=== PATIENT | female | born 1975 | race Two or more races ===

== ENCOUNTER 2022-11-01 11:22 | Emergency (ER) | payer OTHER ==
[~2022-11-01] VITALS: Ht 172.7 cm; Wt 95.7 kg
[2022-11-01] MEDS ORDERED: CRESTOR5 MG PO (11:34)
== END 2022-11-01 16:59 | disposition home or self-care (01) ==
LOC: ER 11:22
DX: M54.9 Dorsalgia, unspecified (principal)

== ENCOUNTER 2023-06-26 05:40 | Day surgery (SDC) | payer OTHER ==
[~2023-06-26 05:40] MED LIST: CRESTOR5 MG PO
[2023-06-26] MEDS ORDERED: PERCOCET 5-3251 EACH PO (11:33)
[2023-06-26] MEDS ORDERED: NEURONTIN300 MG PO (11:33)
[2023-06-26] MEDS ORDERED: KETO10TA2 PO (11:33)
== END 2023-06-26 15:40 | disposition home or self-care (01) ==
LOC: CIR.AMB 05:40
PROVIDERS: ATTEND Surgery
DX: K62.0 Anal polyp (principal); K64.8 Other hemorrhoids; E78.5 Hyperlipidemia, unspecified; Z20.822 Contact with and (suspected) exposure to COVID-19

== ENCOUNTER 2024-09-06 19:20 | Emergency (ER) | payer OTHER ==
[~2024-09-06] VITALS: Ht 165.1 cm; Wt 81.6 kg
[~2024-09-06 19:20] MED LIST changes: +KETO10TA2 PO; +NEURONTIN300 MG PO; +PERCOCET 5-3251 EACH PO
[2024-09-06] MEDS ORDERED: FAMOtidine 10 MG/ML (4ML VIAL) IV ONE (20:15)
[2024-09-06] MEDS ORDERED: KETOROLAC TROMETHAMINE 30 MG VIAL IV ONE (20:15)
[2024-09-06] MEDS ORDERED: ONDANSETRON HCL 2 MG/ML VIAL IV ONE (20:15)
[2024-09-06] MEDS ORDERED: 0.9 % SODIUM CHLORIDE 1,000 ML IV ONE (20:15)
[2024-09-06 21:10] LABS: HEMATOCRIT 36.9 % (36.0-45.00); HEMOGLOBIN 12.3 g/dL (12.0-15.00); MEAN CELL VOLUME 80.4 fL (80.00-100.00); MEAN CORPUSCULAR HEMOGLOBIN 26.8 pg (27.00-32.0); MEAN CORPUSCULAR HGB CONC 33.4 g/dl (32.0-36.0); PLATELET COUNT 317 K/uL (150-450); RED BLOOD COUNT 4.59 M/uL (4.00-6.00); RED CELL DISTRIBUTION WIDTH 13.7 % (11.5-14.5)
[2024-09-06] MEDS ORDERED: KETOROLAC TROMETHAMINE 30 MG VIAL ONE (21:21)
[2024-09-06] MEDS ORDERED: FAMOTIDINE/PF 20 MG/2 ML VIAL ONE (21:21)
[2024-09-06] MEDS ORDERED: ONDANSETRON HCL 2 MG/ML VIAL ONE (21:21)
[2024-09-06] MEDS ORDERED: DIATRIZOATE MEGLUMINE, SODIUM 30 ML BOTTLE ONE (21:26)
[2024-09-06 21:32] LABS: INR 0.99; PROTHROMBIN TIME 10.8 SECONDS (9.0-11.5)
[2024-09-06 21:49] LABS: ALBUMIN 3.2 gm/dL (3.4-5.0); ALKALINE PHOSPHATASE 93 U/L (50-136); ALT/SGPT 21 U/L (12-78); ANION GAP 11 (10.0-20.0); AST/SGOT 16 U/L (15-37); BILIRUBIN TOTAL 0.28 mg/dL (0.3-1.2); BLOOD UREA NITROGEN 15 mg/dL (7-18); BUN CREA RATIO 18 (7.0-25.0); CALCIUM 9.2 mg/dL (8.5-10.1); CARBON DIOXIDE 25 mEq/L (21-32); CHLORIDE 107 mmol/L (98-107); CREATININE SERUM 0.84 mg/dL (0.55-1.02); GFR 71.48; GLOBULINA 4.8 G/DL (2.4-3.5); GLUCOSE FASTING 129 mg/dL (65-100); OSMOLALITY SERUM 280 MOSM/KG (275-295); POTASSIUM 3.85 mEq/L (3.5-5.1); SODIUM 139 mmol/L (136-145)
[2024-09-06 21:53] LABS: HCG QUANTITATIVE < 1 mUI/mL (1-3)
[2024-09-06] MEDS ORDERED: PIPERACILLIN/TAZOBACTAM SODIUM 3.375 GM VIAL IV ONE ×2 (22:30→23:02)
[2024-09-07 02:35] LABS: URINE APPEARANCE Clear; URINE BILIRRUBIN Negative (NEGATIVE); URINE BLOOD Small; URINE COLOR Yellow; URINE GLUCOSE Negative (NEGATIVE); URINE KETONE Negative (NEGATIVE); URINE LEUKOCYTE Trace; URINE NITRATE Negative; URINE PROTEIN Trace (NEGATIVE); URINE UROBILINOGEN 0.2 E.U./dl
[2024-09-07 02:38] LABS: URINE BACTERIA 449.1 uL (0.0-1933); URINE EPITHELIAL CELLS 13.7 uL (0.0-38.8); URINE RBC 10.3 uL (0.0-20.8); URINE WBC 27.6 uL (0.0-23.2)
[2024-09-07 02:43] LABS: URINE CAST 0.14 uL (0.0-1.40)
[2024-09-07] MEDS ORDERED: PIPERACILLIN/TAZOBACTAM SODIUM 3.375 GM VIAL IV ONE (06:04)
[2024-09-07] MEDS ORDERED: MORPHINE SULFATE 4 MG/ML VIAL IV STA (06:05)
[2024-09-07] MEDS ORDERED: PIPERACILLIN/TAZOBACTAM SODIUM 3.375 GM VIAL IV STA (06:05)
[2024-09-07] MEDS ORDERED: MORPHINE SULFATE 4 MG/ML VIAL IV ONE (12:45)
[2024-09-07] MEDS ORDERED: KETOROLAC TROMETHAMINE 15 MG VIAL IV ONE (12:45)
[2024-09-07] MEDS ORDERED: KETOROLAC TROMETHAMINE 30 MG VIAL ONE ×2 (14:30→22:02)
[2024-09-07] MEDS ORDERED: METRONIDAZOLE/SODIUM CHLORIDE 500 MG/100 ML PIGGYBACK IV ONE ×2 (16:29→16:30)
[2024-09-07] MEDS ORDERED: CEFTRIAXONE SODIUM 1,000 MG VIAL ONE (16:30)
[2024-09-07] MEDS ORDERED: CEFTRIAXONE SODIUM 1,000 MG VIAL IV ONE (16:30)
[2024-09-07] MEDS ORDERED: PANTOPRAZOLE SODIUM 40 MG/VIAL VIAL IV PUSH ONE (16:30)
[2024-09-07] MEDS ORDERED: DOXYCYCLINE HYCLATE 100MG IV ONE (16:30)
[2024-09-07] MEDS ORDERED: ONDANSETRON HCL 2 MG/ML VIAL ONE (16:39)
[2024-09-07] MEDS ORDERED: KETOROLAC TROMETHAMINE 30 MG VIAL IV ONE (22:00)
== END 2024-09-07 21:39 | disposition home or self-care (01) ==
LOC: ER 19:20
PROVIDERS: General Practice
DX: N73.9 Female pelvic inflammatory disease, unspecified (principal); R16.0 Hepatomegaly, not elsewhere classified

== ENCOUNTER 2024-09-12 17:49 | Inpatient (IN) | payer OTHER ==
[~2024-09-12] VITALS: Ht 172.7 cm; Wt 97.5 kg
[2024-09-12] MEDS ORDERED: 0.9 % SODIUM CHLORIDE 1,000 ML IV SCH ×2 (19:45→22:30)
[2024-09-12 20:01] LABS: HEMATOCRIT 35.2 % (36.0-45.00); HEMOGLOBIN 11.8 g/dL (12.0-15.00); MEAN CELL VOLUME 78.7 fL (80.00-100.00); MEAN CORPUSCULAR HEMOGLOBIN 26.4 pg (27.00-32.0); MEAN CORPUSCULAR HGB CONC 33.6 g/dl (32.0-36.0); PLATELET COUNT 478 K/uL (150-450); RED BLOOD COUNT 4.47 M/uL (4.00-6.00); RED CELL DISTRIBUTION WIDTH 14.3 % (11.5-14.5)
[2024-09-12 20:15] LABS: INR 1.05; PARTIAL THROMBOPLASTIN TIME 25.3 SECONDS (22.0-34.0); PROTHROMBIN TIME 11.4 SECONDS (9.0-11.5)
[2024-09-12 20:19] LABS: ALBUMIN 2.9 gm/dL (3.4-5.0); BILIRUBIN TOTAL 0.22 mg/dL (0.3-1.2); CALCIUM 9.4 mg/dL (8.5-10.1); CREATININE SERUM 0.76 mg/dL (0.55-1.02); GFR 80.23; GLOBULINA 5.5 G/DL (2.4-3.5); POTASSIUM 3.96 mEq/L (3.5-5.1); TOTAL PROTEIN 8.4 gm/dL (6.4-8.2)
[2024-09-12] MEDS ORDERED: METRONIDAZOLE/SODIUM CHLORIDE 100 ML IV SCH (22:04)
[2024-09-12] MEDS ORDERED: FAMOTIDINE/PF 20 MG in 0.9 % SODIUM CHLORIDE 8 ML IV PUSH STA (22:05)
[2024-09-12] MEDS ORDERED: DOXYCYCLINE HYCLATE 100MG IV SCH (22:05)
[2024-09-12] MEDS ORDERED: CEFTRIAXONE SODIUM 1,000 MG in 0.9 % SODIUM CHLORIDE 100 ML IV SCH (22:05)
[2024-09-12] MEDS ORDERED: CEFTRIAXONE SODIUM 1,000 MG VIAL ONE (22:11)
[2024-09-12] MEDS ORDERED: FAMOTIDINE/PF 20 MG/2 ML VIAL ONE (22:11)
[2024-09-12] MEDS ORDERED: CEFTRIAXONE SODIUM 2,000 MG in 0.9 % SODIUM CHLORIDE 100 ML IV SCH (22:24)
[2024-09-12] MEDS ORDERED: ACETAMINOPHEN 500 MG GEL..CAP PO PRN (22:30)
[2024-09-12] MEDS ORDERED: MORPHINE SULFATE 4 MG/ML CARTRIDGE IV PRN (22:30)
[2024-09-12] MEDS ORDERED: ONDANSETRON HCL 4 MG in 0.9 % SODIUM CHLORIDE 50 ML IV PRN (22:30)
[2024-09-13 01:00] VITALS: BP 150/89; O2SAT 96
[2024-09-13 06:20] VITALS: BP 135/81
[2024-09-13 06:30] VITALS: BP 135/81
[2024-09-13 07:05] LABS: COVID-19 AG NEGATIVE (NEGATIVE)
[2024-09-13] MEDS ORDERED: FAMOTIDINE/PF 20 MG in 0.9 % SODIUM CHLORIDE 8 ML IV PUSH SCH (09:00)
[2024-09-13 09:06] VITALS: BP 114/88
[2024-09-13 10:51] LABS: URINE APPEARANCE Clear; URINE BILIRRUBIN Negative (NEGATIVE); URINE BLOOD Negative; URINE COLOR Yellow; URINE GLUCOSE Negative (NEGATIVE); URINE KETONE Negative (NEGATIVE); URINE LEUKOCYTE Negative; URINE NITRATE Negative; URINE PROTEIN Negative (NEGATIVE); URINE UROBILINOGEN 0.2 E.U./dl
[2024-09-13 10:55] LABS: URINE BACTERIA 100.3 uL (0.0-1933); URINE EPITHELIAL CELLS 4.1 uL (0.0-38.8); URINE WBC 4.2 uL (0.0-23.2)
[2024-09-13 11:09] LABS: URINE CAST 0.14 uL (0.0-1.40)
[2024-09-13] MEDS ORDERED: MIDAZOLAM HCL 2 MG/2 ML VIAL IV PUSH ONE (16:15)
[2024-09-13] MEDS ORDERED: fentaNYL CITRATE 50 MCG/ML AMPUL IV PUSH ONE (16:15)
[2024-09-13] MEDS ORDERED: DOXYCYCLINE HYCLATE 100MG IV SCH (17:00)
[2024-09-13 18:30] VITALS: BP 143/83
[2024-09-14] VITALS: BP 123/73
[2024-09-14 08:05] LABS: HEMATOCRIT 32.3 % (36.0-45.00); HEMOGLOBIN 11.1 g/dL (12.0-15.00); MEAN CELL VOLUME 79.4 fL (80.00-100.00); MEAN CORPUSCULAR HEMOGLOBIN 27.2 pg (27.00-32.0); MEAN CORPUSCULAR HGB CONC 34.3 g/dl (32.0-36.0); PLATELET COUNT 442 K/uL (150-450); RED BLOOD COUNT 4.06 M/uL (4.00-6.00); RED CELL DISTRIBUTION WIDTH 14.1 % (11.5-14.5)
[2024-09-14 08:08] VITALS: BP 133/80
[2024-09-14 08:26] LABS: ALBUMIN 2.6 gm/dL (3.4-5.0); BILIRUBIN TOTAL 0.28 mg/dL (0.3-1.2); CALCIUM 8.8 mg/dL (8.5-10.1); CREATININE SERUM 0.68 mg/dL (0.55-1.02); GFR 91.22; GLOBULINA 4.1 G/DL (2.4-3.5); PHOSPHOROUS 3.4 mg/dL (2.5-4.9); POTASSIUM 4.15 mEq/L (3.5-5.1); TOTAL PROTEIN 6.7 gm/dL (6.4-8.2)
[2024-09-14 08:28] LABS: C-REACTIVE PROTEIN 3.11 MG/DL (0.00-0.29)
[2024-09-14 16:00] VITALS: BP 131/79
[2024-09-14] MEDS ORDERED: LACTOBACILLUS ACIDOPHILUS 1 CAP CAP PO SCH (17:00)
[2024-09-14 21:05] LABS: chla t Negative (Negative); neiss Negative (Negative)
[2024-09-14 23:53] VITALS: BP 124/78
[2024-09-15 08:00] VITALS: BP 132/81
[2024-09-15 16:18] VITALS: BP 126/83
[2024-09-16 00:09] VITALS: BP 123/77
[2024-09-16 06:34] LABS: HEMATOCRIT 31.8 % (36.0-45.00); HEMOGLOBIN 10.8 g/dL (12.0-15.00); MEAN CELL VOLUME 79.2 fL (80.00-100.00); MEAN CORPUSCULAR HEMOGLOBIN 26.8 pg (27.00-32.0); MEAN CORPUSCULAR HGB CONC 33.9 g/dl (32.0-36.0); PLATELET COUNT 402 K/uL (150-450); RED BLOOD COUNT 4.01 M/uL (4.00-6.00); RED CELL DISTRIBUTION WIDTH 13.9 % (11.5-14.5)
[2024-09-16 08:00] VITALS: BP 119/77
[2024-09-16 16:00] VITALS: BP 126/82
[2024-09-16] MEDS ORDERED: DOXYCYCLINE HYCLATE 100 MG CAPSULE PO SCH (21:00)
[2024-09-17 01:00] VITALS: BP 115/72
[2024-09-17] MEDS ORDERED: METROnidazole 500 MG TABLET PO SCH (01:00)
[2024-09-17 08:50] VITALS: BP 116/65
[2024-09-17 16:00] VITALS: BP 115/77
[2024-09-17] MEDS ORDERED: CEFTRIAXONE SODIUM 2,000 MG VIAL IM STA (21:50)
[2024-09-18] MEDS ORDERED: CEFTRIAXONE SODIUM 2,000 MG VIAL IM ONE (00:30)
[2024-09-18 00:37] VITALS: BP 120/79
[2024-09-18 08:35] VITALS: BP 114/70; O2SAT 100
[2024-09-18 13:20] VITALS: BP 120/82; O2SAT 98
[2024-09-18 16:00] VITALS: BP 126/80
[2024-09-18] MEDS ORDERED: CEFTRIAXONE2 GM IM (18:28)
[2024-09-18] MEDS ORDERED: Vibramycin PO (18:28)
[2024-09-18] MEDS ORDERED: METRONIDAZOLE500 MG PO (18:29)
[2024-09-18] MEDS ORDERED: LIDOCAINE HCL 1% 10ML VIAL IJ NR (18:30)
[2024-09-18] MEDS ORDERED: CEFTRIAXONE SODIUM 2,000 MG VIAL IM NR (18:30)
[2024-09-18] MEDS ORDERED: CEFTRIAXONE SODIUM 2,000 MG VIAL IM SCH (21:00)
== END 2024-09-18 19:14 | disposition home or self-care (01) | DRG 759 ==
LOC: ER 17:50 → OB/GYN 22:52
PROVIDERS: General Practice; Internal Medicine Infectious Disease; ADMIT Obstetrics & Gynecology; ATTEND Obstetrics & Gynecology
PROC: BW21YZZ Computerized Tomography (CT Scan) of Abdomen and Pelvis using Other Contrast (ICD-10-PCS; principal; 2024-09-12)
PROC: BW21ZZZ Computerized Tomography (CT Scan) of Abdomen and Pelvis (ICD-10-PCS; 2024-09-12)
PROC: 0W9J3ZZ Drainage of Pelvic Cavity, Percutaneous Approach (ICD-10-PCS; 2024-09-13)
PROC: BW21YZZ Computerized Tomography (CT Scan) of Abdomen and Pelvis using Other Contrast (ICD-10-PCS; 2024-09-16)
DX: N70.93 Salpingitis and oophoritis, unspecified (principal)

== ENCOUNTER 2025-02-24 08:00 | Day surgery (SDC) | payer OTHER ==
[2025-02-21 10:45] LABS: URINE APPEARANCE Clear; URINE BILIRRUBIN Negative (NEGATIVE); URINE BLOOD Negative; URINE COLOR Yellow; URINE GLUCOSE Negative (NEGATIVE); URINE KETONE Negative (NEGATIVE); URINE LEUKOCYTE Trace; URINE NITRATE Negative; URINE PROTEIN Negative (NEGATIVE); URINE UROBILINOGEN 0.2 E.U./dl
[2025-02-21 10:46] LABS: URINE BACTERIA 518.0 uL (0.0-1933); URINE EPITHELIAL CELLS 5.6 uL (0.0-38.8); URINE WBC 2.9 uL (0.0-23.2)
[2025-02-21 10:51] LABS: BASO % 0.4 % (0.1-1.2); EOS # 0.11 (0.04-0.54); EOS % 1.2 % (0.7-7.0); LYMPH # 2.71 (1.18-3.74); LYMPH % 29.1 % (19.3-53.1); MEAN PLATELET VOLUME 8.90 fl (9.4-12.4); MONO # 0.43 (0.24-0.82); MONO % 4.6 % (4.7-12.5); NEUT # 6.01 (1.56-6.13); NEUT % 64.5 % (34.0-71.1); RED CELL DISTRIBUTION WIDTH 14.0 % (11.6-14.4)
[2025-02-21 10:52] LABS: URINE CAST 0.00 uL (0.0-1.40); URINE RBC 1.1 uL (0.0-20.8)
[2025-02-21 11:40] LABS: ALT/SGPT 24.0 U/L (12-78); AST/SGOT 15.0 U/L (15-37); BILIRUBIN TOTAL 0.55 mg/dL (0.3-1.2); BUN CREA RATIO 18.0 (7.0-25.0); CREATININE SERUM 0.68 mg/dL (0.55-1.02); GFR 91.22; GLOBULINA 4.1 G/DL (2.4-3.5); GLUCOSE FASTING 91.0 mg/dL (65-100); OSMOLALITY SERUM 277.0 MOSM/KG (275-295)
[2025-02-21 12:13] LABS: INR 1.0
[2025-02-21 12:56] LABS: RH POSITIVE
[~2025-02-24 08:00] MED LIST changes: +CEFTRIAXONE2 GM IM; +METRONIDAZOLE500 MG PO; +Vibramycin PO
[2025-02-24] MEDS ORDERED: POVIDONE-IODINE 118 ML BOTT TOP ONE (09:58)
[2025-02-24] MEDS ORDERED: KETOROLAC TROMETHAMINE 30 MG VIAL IV ONE (12:15)
[2025-02-24] MEDS ORDERED: KETOROLAC TROMETHAMINE 30 MG VIAL ONE (13:41)
== END 2025-02-24 18:00 | disposition home or self-care (01) ==
LOC: CIR.AMB 08:00
PROVIDERS: ATTEND Obstetrics & Gynecology
DX: N95.0 Postmenopausal bleeding (principal)